=== PATIENT | male | born 1990 | race African-American/Black ===

== ENCOUNTER → 2023-11-01 10:45 | Outpatient (BNVA) | payer OTHER, SELFPAY | PROVIDERS: Visit Provider Physician Assistant Medical | DX: S09.90XA Unspecified injury of head, initial encounter (principal); S29.011A Strain of muscle and tendon of front wall of thorax, initial encounter; S39.011A Strain of muscle, fascia and tendon of abdomen, initial encounter; V89.2XXA Person injured in unspecified motor-vehicle accident, traffic, initial encounter ==

== ENCOUNTER 2023-11-01 12:31 | Emergency (ER) | payer OTHER, SELFPAY ==
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
[2023-11-01 12:36] VITALS: BP 138/89; PULSE 87; RESP 18; TEMP 36.5; O2SAT 97; BMI 25.7
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
--- NOTE | 2023-11-01 13:05 | PC.NURSE ---
20gIV placed in the left AC. labs obtained/sent to lab. pt resting comfortably on stretcher in no apparent distress at this time. pt waiting to go to CT at this time.
[2023-11-01 13:06] LABS: MANUAL DIFF FLAG NO
[2023-11-01 13:10] LABS: Basophils Percent Auto 0.2 % (0-2); Eosinophils Absolute Auto 0.7 X10*3/uL (0.0-0.4); Eosinophils Percent Auto 8.5 % (0-4); Hematocrit 45.9 % (42.0-52.0); Hemoglobin 15.8 g/dl (14.0-18.0); Imm Gran Abs Auto 0.02 X10*3/uL (0.00-0.03); Imm Gran Pct Auto 0.2 % (0.0-0.4); Lymphocytes Absolute Auto 1.9 X10*3/uL (1.2-4.9); Lymphocytes Percent Auto 23.2 % (20-40); Mean Corpuscular HGB Conc 34.4 g/dl (31.0-36.0); Mean Corpuscular Hemoglobin 31.2 pg (27.0-33.0); Mean Corpuscular Volume 90.5 fL (80.0-98.0); Mean Platelet Volume 9.6 fL (9.4-12.4); Monocytes Absolute Auto 0.5 X10*3/uL (0.1-1.2); Monocytes Percent Auto 6.3 % (2-11); Neutrophils Absolute Auto 5.1 x10*3/uL (2.0-8.3); Neutrophils Percent Auto 61.6 % (45-73); Platelet Count 297 X10*3/uL (160-400); Red Blood Count 5.07 X10*6/uL (4.60-5.80); Red Cell Distribution Width 12.2 % (11.0-16.0); White Blood Count 8.2 X10*3/uL (4.8-10.8)
[2023-11-01 13:17] LABS: INTERNATIONAL NORM RATIO 0.9 (0.9-1.1); Prothrombin Time 10.5 SEC (11.1-13.3)
--- NOTE | 2023-11-01 14:05 | PC.NURSE ---
repeat labs obtained/sent to lab by [facility].
[2023-11-01 14:17] LABS: Alanine Aminotransferase 15 U/L (0-40); Albumin Level 3.9 g/dL (3.5-5.0); Alkaline Phosphatase 80 U/L (39-117); Anion Gap 7 (12-20); Aspartate Amino Transferase 16 U/L (5-37); Bilirubin Total 0.3 mg/dL (0.0-1.0); Blood Urea Nitrogen 18 mg/dL (9-16); Calcium 9.2 mg/dL (8.4-10.2); Carbon Dioxide 29 mmol/L (22-29); Chloride 106 mmol/L (96-108); Creatinine Clr Calc Pharmacy 72.3; Estimated Glomerular Filt Rate > 60; Ethanol < 10 mg/dL; Glucose Random 94 mg/dL (60-115); Lipase 42 U/L (8-78); Magnesium 2.1 mg/dL (1.6-2.6); Potassium 4.3 mmol/L (3.3-5.1); Sodium 138 mmol/L (135-145); Total Protein 7.2 g/dL (6.5-8.0)
--- NOTE | 2023-11-01 15:30 | PC.NURSE ---
pt to CT at this time.
[2023-11-01] MEDS: iohexoL 350 MG/ML 100 ML INFUS..BTL 80 ML IV (15:59)
[2023-11-01 16:32] VITALS: BP 141/78; PULSE 83; RESP 16; TEMP 36.9; O2SAT 99
--- NOTE | 2023-11-01 16:41 | PC.NURSE ---
urine obtained/sent to lab.
[2023-11-01 18:27] LABS: Amphetamine Screen Urine Not Detected (Not Detect); Barbiturates, Urine Not Detected (Not Detect); Benzodiazepines Screen Urine Not Detected (Not Detect); Cannabinoid Screen Urine Not Detected (Not Detect); Cocaine Screen Urine Not Detected (Not Detect); Fentanyl, urine Not Detected (Not Detect); Opiate Screen Urine Not Detected (Not Detect); Phencyclidine Screen Urine Not Detected (Not Detect)
== END 2023-11-01 19:22 | disposition home or self-care (01) ==
PROVIDERS: Emergency Medicine; Physician Assistant Medical; Emergency Provider Student in an Organized Health Care Education/Training Program
DX: S09.90XA Unspecified injury of head, initial encounter (principal); V47.6XXA Car passenger injured in collision with fixed or stationary object in traffic accident, initial encounter; H93.13 Tinnitus, bilateral; R10.11 Right upper quadrant pain; R07.89 Other chest pain; Y93.89 Activity, other specified; Y92.411 Interstate highway as the place of occurrence of the external cause; Y99.0 Civilian activity done for income or pay; Z79.899 Other long term (current) drug therapy
CPT/HCPCS: 36415; 70450; 70496; 70498; 71260; 72125; 74177; 80053; 80307; 83690; 83735; 85025; 85610; 99284; Q9967